=== PATIENT | male | born 1980 ===

== ENCOUNTER 2018-09-08 23:26 | Emergency (ER) | payer SELFPAY ==
[2018-09-08 23:57] VITALS: O2SAT 100
[2018-09-09] MEDS ORDERED: Sodium Chloride 0.9% 1,000 ML IV STA ×2 (00:17→02:04)
[2018-09-09 01:00] LABS: BASO % 0.2 % (0.0-2.0); EOS # 0.1 K/uL (0.0-0.7); EOS % 1.3 % (0.0-4.0); LYMPH # 0.4 K/uL (1.0-4.3); LYMPH % 6.4 % (20.0-40.0); MEAN CELL VOLUME 85.7 fl (80.0-94.0); MEAN CORPUSCULAR HEMOGLOBIN 28.3 pg (27.0-31.0); MEAN PLATELET VOLUME 9.1 fl (7.2-11.7); MONO # 0.3 K/uL (0.0-0.8); MONO % 4.9 % (0.0-10.0); NEUT # 5.2 K/uL (1.8-7.0); NEUT % 87.2 % (50.0-75.0); PLATELET COUNT 147 K/uL (130-400); RED CELL DISTRIBUTION WIDTH 13.2 % (11.5-14.5)
--- NOTE | 2018-09-09 01:09 | ED PDOC ---
HPI:Nausea, Vomiting, Diarrhea Time Seen by Provider: 09/08/18 23:40 Chief Complaint (Nursing): GI Problem Chief Complaint (Provider): Vomiting and Diarrhea History Per: Patient History/Exam Limitations: no limitations Onset/Duration Of Symptoms: Days (1) Current Symptoms Are (Timing): Constant Additional Complaint(s): 37 year old male presents to the ED for an evaluation of vomiting and diarrhea onset yesterday at 2am. Patient states the symptoms are constant and his daughter and son had the same symptoms a few days ago. Otherwise, he denies abdominal pain, fever, cough or chest pain. PMD: no family provider Past Medical History Reviewed: Historical Data, Nursing Documentation, Vital Signs Vital Signs: Last Vital Signs Temp 98 F 09/08/18 23:56 Pulse 87 09/08/18 23:56 Resp 19 09/08/18 23:56 BP 120/68 09/08/18 23:56 Pulse Ox 100 09/08/18 23:56 Primary Care Provider: FAMILY PROVIDER,NO - Medical History PMH: No Chronic Diseases - Family History Family History: States: Unknown Family Hx - Social History Current smoker - smoking cessation education provided: No Alcohol: None Drugs: Denies - Allergies Allergies/Adverse Reactions: Allergies Allergy/AdvReac Type Severity Reaction Status Date / Time No Known Allergies Allergy Verified 09/08/18 23:57 Review of Systems ROS Statement: Except As Marked, All Systems Reviewed And Found Negative Constitutional: Negative for: Fever Cardiovascular: Negative for: Chest Pain Respiratory: Negative for: Cough Gastrointestinal: Positive for: Vomiting, Diarrhea. Negative for: Nausea, Abdominal Pain Genitourinary Male: Negative for: Dysuria, Frequency, Incontinence Physical Exam - Reviewed Nursing Documentation Reviewed: Yes Vital Signs Reviewed: Yes - Physical Exam Appears: Positive for: Non-toxic, No Acute Distress Head Exam: Positive for: ATRAUMATIC, NORMAL INSPECTION, NORMOCEPHALIC Skin: Positive for: Normal Color, Warm, Dry. Negative for: Rash Eye Exam: Positive for: EOMI, Normal appearance, PERRL ENT: Positive for: Normal ENT Inspection Neck: Positive for: Normal, Painless ROM Cardiovascular/Chest: Positive for: Regular Rate, Rhythm. Negative for: Murmur Respiratory: Positive for: Normal Breath Sounds. Negative for: Respiratory Distress Gastrointestinal/Abdominal: Positive for: Normal Exam, Bowel Sounds, Soft. Negative for: Tenderness, Guarding, Rebound Back: Positive for: Normal Inspection. Negative for: L CVA Tenderness, R CVA Tenderness Extremity: Positive for: Normal ROM. Negative for: Tenderness, Pedal Edema, Deformity Neurological/Psych: Positive for: Awake, Alert, Normal Tone, Oriented (x3) - Laboratory Results Result Diagrams: 09/09/18 00:51 09/09/18 00:51 - ECG O2 Sat by Pulse Oximetry: 100 (RA) Pulse Ox Interpretation: Normal Medical Decision Making Medical Decision Making: Time: 00:17 Plan: diarrhea and vomiting, rule out gastroenteritis --CMP --Lipase --CBC w/ differential --Normal saline 999 mls/hr --Zofran 4mg 02:42 Patient has renal insufficiency with no prior labs to compare to. informed pt of results and need for close follow up as an outpt. he is agreeabel to plan. 03:44 Patient tolerated PO and feels better . abdominal exam normal. Scribe Attestation: Documented by Juan Daniel Marino, acting as a scribe for Gloria Franz MD. Provider Scribe Attestation: All medical record entries made by the Scribe were at my direction and personally dictated by me. I have reviewed the chart and agree that the record accurately reflects my personal performance of the history, physical exam, medical decision making, and the department course for this patient. I have also personally directed, reviewed, and agree with the discharge instructions and disposition. Disposition - Clinical Impression Clinical Impression: Gastroenteritis - Patient ED Disposition Is Patient to be Admitted: No Counseled Patient/Family Regarding: Studies Performed, Diagnosis, Need For Followup - Disposition Referrals: [facility] [Outside] [facility] [Outside] Niharika Osman MD [Staff Provider] - Disposition: Routine/Home Disposition Time: 03:44 Condition: IMPROVED Additional Instructions: follow up with clinic in 2 days as well as with your kidney doctor for your kidney issues return to the ED with any worsening or concerning symptoms Instructions: Kidney Failure (DC), Viral Gastroenteritis, Adult (DC) Forms: [employer] (Ma[place])
[2018-09-09 01:13] LABS: ALB/GLOB RATIO 1.4 (1.0-2.1); ALBUMIN 4.1 g/dL (3.5-5.0); CALCIUM 7.3 mg/dL (8.4-10.2)
[2018-09-09 02:17] LABS: BANDS 1 % (0-2); LYMPHOCYTE 7 % (20-50); MONOCYTE 5 % (0-10); NEUTROPHIL 87 % (42-75); PLATELET ESTIMATE NORMAL (NORMAL); TOTAL CELLS COUNTED 100
[2018-09-09 03:56] VITALS: BP 120/67; PULSE 84; RESP 18
[2018-09-09 04:02] VITALS: TEMP 99.5
== END 2018-09-09 04:08 | disposition home or self-care (01) ==
LOC: H.ER 23:26
DX: K52.9 Noninfective gastroenteritis and colitis, unspecified (principal); N28.9 Disorder of kidney and ureter, unspecified
CPT/HCPCS: 80053; 83690; 85025; 96361; 96374; 99282; J2405; J7030